=== PATIENT | male | born 1990 ===

== ENCOUNTER 2017-01-28 22:34 | Emergency (ER) | payer OTHER ==
[2017-01-28 22:40] VITALS: PULSE 78; RESP 17; TEMP 97.5; O2SAT 98
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
== END 2017-01-29 12:57 | disposition home or self-care (01) ==
LOC: H.ER 22:34
DX: M79.605 Pain in left leg (principal); V03.10XA Pedestrian on foot injured in collision with car, pick-up truck or van in traffic accident, initial encounter; Y92.410 Unspecified street and highway as the place of occurrence of the external cause